=== PATIENT | male | born 1990 | race Caucasian/White ===

== ENCOUNTER 2022-12-17 16:02 | Emergency (ER) | payer MEDICAID, SELFPAY ==
[2022-12-17 16:05] VITALS: BP 149/89; PULSE 84; RESP 16; TEMP 36.5; O2SAT 98; BMI 31.1
--- NOTE | 2022-12-17 16:15 | ECG_ITS ---
[facility] Test Date: 2022-12-17 Pat Name: Mc Dawkins Department: Room: Gender: Male Pc Technician: : 1990 Requested By: Pasquale Oliva Order Number: [id number] Migel MD: Mirtha Boss M.D. Measurements Intervals [place] Rate: 89 P: 49 MA: 135 QRS: 58 QRSD: 79 T: 50 QT: 345 QTc: 422 Interpretive Statements SINUS RHYTHM No previous ECG available for comparison Electronically Signed On 12-18-2022 7:22:56 CDT by Mirtha Boss M.D. [id number]
--- NOTE | 2022-12-17 16:36 | XRR_ITS ---
PROCEDURE INFORMATION: Exam: XR Chest Exam date and time: 12/17/2022 5:05 PM Age: 32 years old Clinical indication: Pain; Angina pectoris; Additional info: Chest pain TECHNIQUE: Imaging protocol: Radiologic exam of the chest. Views: 1 view. COMPARISON: No relevant prior studies available. FINDINGS: Lungs: Lungs are clear bilaterally. Pleural spaces: No pleural effusion. No pneumothorax. Heart/Mediastinum: The cardiac silhouette and mediastinal contours are unremarkable. Bones/joints: Unremarkable for age. XR/XR chest 1V portable [id number] IMPRESSION: No acute cardiopulmonary process.
[2022-12-17 17:05] VITALS: BP 174/97; PULSE 91; RESP 18; O2SAT 95
--- NOTE | 2022-12-17 17:33 | W.ED.CHESTPA ---
HPI - Chest Pain General: Chief Complaint: Chest Pain Stated Complaint: CP Time Seen by Provider: 12/17/22 17:22 Source: patient Mode of arrival: ambulatory Limitations: no limitations History of Present Illness: This patient has had several episodes of anxiety today. He does have underlying history of anxiety but he developed some upper chest discomfort today that seem to be aching in nature. It was not associated with activity but seem to also be exacerbated by an episode when he vomited. He did vomit twice today which sometimes occurs with his anxiety episodes. He states he did not drink any caffeinated beverages today. He is uncertain what triggered his anxiety today but that is not unusual for him. He is currently a resident at [facility]. He does smoke 2 cigarettes daily. He denies any cough or fever or recent injury. He states that his symptoms are not changed by twisting turning or movement etc. He does not not have any history of cardiovascular disease and there is no history of premature cardiovascular disease in his family. He has completed basic training in the [employer] without any difficulty and was active in extracurricular activities without any restrictions when going up. MD complaint: chest pain Timing of current episode: episodic Pain location: left chest Pain radiation: none Relieving factors: nothing Associated symptoms: Reports nausea and vomiting; Deny abdominal pain, dyspnea, fever(s), palpitations or syncope Risk Factors: Coronary artery disease risk factors: none Review of Systems Const: Denies: fever(s) or chills Eyes: Denies: change in vision ENMT: Denies: odynophagia, nasal discharge or nasal congestion Card: Reports: chest pain; Denies: palpitations, irregular heart rhythm, syncope or pre-syncope Resp: Denies: dyspnea, productive cough or non-productive cough GI: Reports: nausea and vomiting; Denies: abdominal pain, hematemesis or melena : Denies: flank pain, difficulty urinating, dysuria or urinary frequency Musc: Denies: neck pain, back pain, extremity pain or extremity swelling Skin/Breast: Denies: rash Neuro: Denies: headache(s), numbness in extremities or weakness in extremities Psych: Reports: anxiety and panic attacks Physical Exam Narrative: EXAM NARRATIVE: Healthy-appearing and calm and cooperative. Appears to be in no acute distress and answers questions in a goal-directed fashion. Const: COMMON NORMALS: no acute distress, average body habitus, patient oriented x3, healthy appearing and alert GENERAL APPEARANCE: cooperative and comfortable HENMT: COMMON NORMALS: normocephalic, Normal nasal mucous membranes and turbinates present, moist oral mucous membranes and oropharynx normal HEAD & SCALP: normocephalic FACE & SINUS: normal facial exam NOSE: Normal nasal mucous membranes and turbinates present Eye: COMMON NORMALS: Equal, round and reactive pupils present, EOMs intact bilaterally and conjunctivae normal CONJUNCTIVA: Yes conjunctivae normal PUPIL: Yes Equal, round and reactive pupils present Neck/C-Spine: COMMON NORMALS: full ROM, no lymphadenopathy, no JVD and No carotid bruits Chest: COMMONS NORMALS: normal inspection of the chest and normal palpation of entire chest wall Resp: COMMON NORMALS: normal respiratory effort, No use of accessory muscles and clear to auscultation bilaterally AUSCULTATION: clear to auscultation bilaterally Cardio: COMMON NORMALS: no JVD, regular rate, regular rhythm and No murmurs present (Cardio) RATE: regular rate RHYTHM: regular rhythm GI: COMMON NORMALS: Normal to inspection, nondistended, normoactive bowel sounds present, Soft to palpation and non-tender PALPATION: Yes Soft to palpation : COMMON NORMALS: Yes no CVA tenderness BLADDER/KIDNEY EXAM: Yes no CVA tenderness Back/Pelvis: COMMON NORMALS: no CVA tenderness, thoracic and lumbar spine normal to inspection, no thoracic nor lumbar tenderness, thoraco-lumbar ROM normal and straight leg raise negative bilaterally Extremity: COMMON NORMALS: normal to inspection, full ROM, capillary refill normal, no calf tenderness and no pedal edema Neuro: COMMON NORMALS: patient oriented x3, moves all extremities, no focal motor deficits and no sensory deficits noted SENSORIUM/ORIENTATION: Yes alert CRANIAL NERVES: Yes CN normal except as noted Psych: COMMON NORMALS: mental status grossly normal, Normal thought process present, cooperative, normal affect and speech normal ATTITUDE: Yes calm ACTIVITY/MOTOR BEHAVIOR: Yes appropriate eye contact SPEECH: Yes normal speech THOUGHT PROCESS: Normal thought process present THOUGHT CONTENT: Yes Normal thought content present Skin: COMMON NORMALS: no rashes or lesions noted, no wounds and turgor normal GENERAL SKIN EXAM: no rashes or lesions noted and turgor normal Course Reevaluation(s): Reevaluation #1: Patient is remained stable has not had any more symptoms since arrival to the emergency department. Dylon current findings their limitations and implications. Does not appear to be ACS or any other concerning findings given the duration of symptoms, negative troponin and negative EKG and other ancillary studies at this time. He is PERC negative and his symptoms favor possible anxiety related and/or esophageal spasm as he related his chronic history of anxiety as well as an episode of vomiting once he had onset of symptoms that seem to improve his symptoms. Was no blood in his vomitus or recurrent vomiting that would suggest something unusual like Boerhaave syndrome etc. Time: 19:54 Vital Signs: Vital signs: Vital Signs Temperature 97.7 F 12/17/22 16:05 Pulse Rate 83 12/17/22 18:57 Respiratory Rate 18 12/17/22 18:57 Blood Pressure 160/78 12/17/22 18:57 Pulse Oximetry 99 12/17/22 18:57 Oxygen Delivery Me thod Room Air 12/17/22 18:57 MDM - Chest Pain Medical Decision Making Patient was referred to the emergency department from his residential facility. He has a history of chronic anxiety disorder and developed some left-sided upper chest pain today which its not clear that was related with typical anxiety symptoms but certainly possible. He also had 1 episode of vomiting which she states relieved his symptoms. He has no prior history of cardiovascular disease, arrhythmia etc. No history of esophageal reflux etc. He only had 1 episode of vomiting today. Has not been recently ill with cough fever etc. No known trauma etc. Clinical examination was reassuring. Normal vital signs no hypoxia etc. No calf tenderness no chest wall tenderness to examination at the time of intake. Ancillary studies obtained revealed negative troponin, negative EKGs, negative cardiac monitoring for arrhythmias etc. Other studies including chest x-ray and laboratories were reassuring. He Patient remained symptom-free. Certainly does not suggest pneumothorax, pneumonia, ACS, arrhythmia, pulmonary embolus etc. at this time. Likely related to his underlying anxiety disorder. Patient was reassured about his current findings and their limitations but also was felt very comfortable with the discussion. He is stable to be discharged back to his domicile with return precautions. Lab Data I reviewed the patient's lab results. 12/17/22 18:01 12/17/22 18:01 Radiology Impressions Chest X-Ray 12/17/22 16:36 IMPRESSION: No acute cardiopulmonary process. Laboratory Results WBC 8.5 10^3/uL (4.0-10.0) 12/17/22 18: RBC 4.90 10^6/uL (4.1-5.3) 12/17/22 18: Hgb 14.3 g/dL (11.7-16.6) 12/17/22 18: Hct 42.4 % (42.0-52.0) 12/17/22 18: MCV 86.5 fl (80-94) 12/17/22 18: MCH 29.2 pg (28.0-34.0) 12/17/22 18: MCHC 33.7 g/dL (30.0-36.0) 12/17/22 18: RDW 12.8 % (12.1-15.1) 12/17/22 18: Plt Count 248 10^3/cmm (130-400) 12/17/22 18: MPV 9.6 fL (7.4-10.4) 12/17/22 18: Neut % (Auto) 59.2 % 12/17/22 18: Lymph % (Auto) 29.5 % 12/17/22 18: [place] % (Auto) 9.1 % 12/17/22 18: Eos % (Auto) 1.5 % 12/17/22 18: Baso % (Auto) 0.5 % 12/17/22 18: Neut # (Auto) 5.05 10^3/uL (1.8-7.7) 12/17/22 18: Lymph # (Auto) 2.5 10^3/uL (0.8-4.8) 12/17/22 18: [place] # (Auto) 0.8 10^3/uL (0.2-0.9) 12/17/22 18: Eos # (Auto) 0.1 10^3/uL (0.0-0.8) 12/17/22 18: Baso # (Auto) 0.0 10^3/uL (0.0-0.1) 12/17/22 18: Nucleated RBC % (auto) 0 % 12/17/22 18: Nucleated RBCs # 0.0 /100WBC 12/17/22 18: Sodium 140 mmol/L (136-145) 12/17/22 18:01 Potassium 4.4 mmol/L (3.5-5.1) 12/17/22 18:01 Chloride 103 mmol/L (98-107) 12/17/22 18:01 Carbon Dioxide 26 mmol/L (22-29) 12/17/22 18:01 Anion Gap 15.4 (5-19) 12/17/22 18:01 BUN 14 mg/dL (6-20) 12/17/22 18:01 Creatinine 0.9 mg/dL (0.7-1.2) 12/17/22 18:01 GFR Calculation 97.2 mL/min (90-130) 12/17/22 18:01 Glucose 93 mg/dL (65-115) 12/17/22 18: Calculated Osmolality 290 mOsm/kg (285-295) 12/17/22 18: Calcium 9.3 mg/dL (8.5-10.5) 12/17/22 18:01 Total Bilirubin 0.2 mg/dL (0.15-1.2) 12/17/22 18:01 AST 18 U/L (0-40) 12/17/22 18:01 ALT 10 U/L (0-41) 12/17/22 18:01 Alkaline Phosphatase 57 U/L (40-130) 12/17/22 18:01 Troponin T Baseline 6 ng/L (0-15) 12/17/22 18:01 Total Protein 7.6 g/dL (6.6-8.7) 12/17/22 18:01 Albumin 4.6 g/dL (3.5-5.2) 12/17/22 18:01 Globulin 3.0 g/dL (1.3-4.6) 12/17/22 18:01 Lipase 19 U/L (13-60) 12/17/22 18:01 Discharge Plan Discharge Patient Disposition: Home Clinical Impression: Chest pain, Anxiety Condition: Stable Prescriptions: No Action buprenorphine-naloxone 8-2 mg tablet, sublingual 1 tab sublingual BID aripiprazole [Abilify] 2 mg tablet 2 mg PO DAILY sulfamethoxazole-trimethoprim [Bactrim DS] 800-160 mg tablet 1 tab PO BID 7 Days Qty: 14 0RF Discharge Orders: Discharge ED (Routine); Ordered 12/17/22 Ordered By: Vega Duncan Discharge Diet: Usual diet Discharge Activity: Resume usual activity Patient Instructions: Opioid Safety, Pain Management Activity Restrictions/Additional Instructions: As we discussed while you are in the emergency department there is no evidence of any serious cause of your symptoms. We suggest that perhaps some anxiety with some esophageal spasm are likely causes but certainly if your symptoms return, worsen or are associated with difficulty breathing persistent chest pain symptoms or any other concerns you are welcome to return to the emergency department for reevaluation. Coding Level of Care Code ED Lock Plater for Frank Ward
[2022-12-17 18:17] LABS: Basophils % 0.5 %; Eosinophils # 0.1 10^3/uL (0.0-0.8); Eosinophils % 1.5 %; Hematocrit 42.4 % (42.0-52.0); Hemoglobin 14.3 g/dL (11.7-16.6); Lymphocytes # 2.5 10^3/uL (0.8-4.8); Lymphocytes % 29.5 %; Mean Corpuscular HGB Conc 33.7 g/dL (30.0-36.0); Mean Corpuscular Hemoglobin 29.2 pg (28.0-34.0); Mean Corpuscular Volume 86.5 fl (80-94); Mean Platelet Volume 9.6 fL (7.4-10.4); Monocytes # 0.8 10^3/uL (0.2-0.9); Monocytes % 9.1 %; Neutrophils # 5.05 10^3/uL (1.8-7.7); Neutrophils % 59.2 %; Nucleated Red Blood Cells % 0 %; Platelet Count 248 10^3/cmm (130-400); Red Cell Distribution Width 12.8 % (12.1-15.1); White Blood Count 8.5 10^3/uL (4.0-10.0)
[2022-12-17 18:36] LABS: Troponin(5th) Baseline 6 ng/L (0-15)
[2022-12-17 18:42] LABS: Alanine Aminotransferase 10 U/L (0-41); Albumin Level 4.6 g/dL (3.5-5.2); Alkaline Phosphatase 57 U/L (40-130); Anion Gap 15.4 (5-19); Aspartate Amino Transferase 18 U/L (0-40); Blood Urea Nitrogen 14 mg/dL (6-20); Calcium 9.3 mg/dL (8.5-10.5); Carbon Dioxide 26 mmol/L (22-29); Chloride 103 mmol/L (98-107); Glomerular Filtration Rate 97.2 mL/min (90-130); Glucose 93 mg/dL (65-115); Lipase 19 U/L (13-60); Osmolality Calculated 290 mOsm/kg (285-295); Potassium 4.4 mmol/L (3.5-5.1); Sodium 140 mmol/L (136-145); Total Bilirubin 0.2 mg/dL (0.15-1.2); Total Protein 7.6 g/dL (6.6-8.7)
[2022-12-17 18:57] VITALS: BP 160/78; PULSE 83; RESP 18; O2SAT 99
--- NOTE | 2022-12-17 19:17 | PC.NURSE ---
REPORT GIVEN TO BRIAN LARA @ 1996.
--- NOTE | 2022-12-23 14:57 | DCPLANNER ---
nurse practitioner manager called patient due to no primary care physician - no answer at this time.
== END 2022-12-17 20:20 | disposition home or self-care (01) ==
PROVIDERS: Emergency Provider Emergency Medicine
DX: R07.9 Chest pain, unspecified (principal); F41.9 Anxiety disorder, unspecified
CPT/HCPCS: 36415; 71045; 80053; 83690; 84484; 85025; 93005; 99285